=== PATIENT | female | born 1980 | race Caucasian/White ===

== ENCOUNTER 2020-12-08 10:25 | Emergency (ER) | payer MEDICAID ==
[2020-12-08] MEDS: Ondansetron 4 MG Tab.DIS PO ONE (10:45)
[2020-12-08] MEDS: HYDROmorphone 4 MG/ML Syringe SUBCUT ONE (10:47)
--- NOTE | 2020-12-08 11:32 | EDM.PDOC ---
ED HPI GENERAL MEDICAL PROBLEM - General Stated Complaint: HEADACHE Time Seen by Provider: 12/08/20 10:30 - History of Present Illness INITIAL COMMENTS - FREE TEXT/NARRATIVE: Pt comes in with C/O a Migraine headache that started early this morning. she woke up with H/A and nausea. She has not vomited. She usually takes Benadryl but today it isn't helping. She has hx of Migraines. No recent falls or injuries. ED ROS GENERAL - Review of Systems Review Of Systems: Comprehensive ROS is negative, except as noted in HPI. GI/Abdominal: Reports: Nausea Neurological: Reports: Other (Migraine with light sensitive.) ED EXAM, NEURO - Physical Exam Exam: See Below General Appearance: Mild Distress (because of headache.), Other (Obvious light sensitivety.) Course - Orders/Labs/Meds Meds: Medications Discontinued Medications Generic Name Dose Route Start Last Admin Trade Name Freq PRN Reason Stop Dose Admin Hydromorphone HCl 1 mg 12/08/20 10:46 Hydromorphone 4 Mg/Ml Syringe SUBCUT 12/08/20 10:47 ONETIME ONE Ondansetron HCl 4 mg 12/08/20 10:47 Ondansetron 4 Mg Tab.Dis PO 12/08/20 10:48 ONETIME ONE - Re-Assessments/Exams Free Text/Narrative Re-Assessment/Exam: 12/08/20 11:30 Zofran and Dilaudid given. Pt monitored for 30 minutes or so.She is feeling much better now, rating her pain at 5-6/10. She came in at 9-10/10. She will be discharged home with her . [place] tabs will be prescribed to use prn - #3 tabs. She is to rest and use Benadryl also. Follow up is prn. 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 Follow up in the clinic as needed.
== END 2020-12-08 11:30 | disposition home or self-care (01) ==
LOC: LB.ED 10:25
DX: G43.011 Migraine without aura, intractable, with status migrainosus (principal)
CPT/HCPCS: 96372; 99283; A9270-GY; J1170

== ENCOUNTER 2021-02-01 16:30 | Emergency (ER) | payer MEDICAID, OTHER ==
[2021-02-01] MEDS ORDERED: Sodium Chloride 0.9% 10 ML Syringe FLUSH PRN (16:54)
[2021-02-01] MEDS: Sodium Chloride 0.9% 1,000 ML IV SCH (17:21)
[2021-02-01] MEDS: diphenhydrAMINE 50 MG/ML SDV IVPUSH ONE (17:26)
[2021-02-01] MEDS: Ketorolac 30 MG/ML SDV IVPUSH ONE (17:30)
[2021-02-01] MEDS: diphenhydrAMINE 50 MG/ML SDV ONE (17:33)
[2021-02-01] MEDS: Ondansetron 4 MG/2 ML SDV ONE (17:33)
[2021-02-01] MEDS: Ketorolac 30 MG/ML SDV ONE (17:34)
[2021-02-01] MEDS: Ondansetron 4 MG/2 ML SDV IVPUSH PRN (17:34)
[2021-02-01] MEDS: HYDROmorphone 2 MG/ML SDV IVPUSH ONE (18:10)
[2021-02-01] MEDS: HYDROmorphone 2 MG/ML SDV ONE (18:18)
--- NOTE | 2021-02-01 18:33 | EDM.PDOC ---
ED HPI GENERAL MEDICAL PROBLEM - General Chief Complaint: Neurological Problem Stated Complaint: MIGRAINE Time Seen by Provider: 02/01/21 16:30 Source of Information: Reports: Patient, RN Notes Reviewed History Limitations: Reports: No Limitations - History of Present Illness INITIAL COMMENTS - FREE TEXT/NARRATIVE: This patient presents to the emergency department for evaluation of a headache. She states she has a history of migraines and is usually able to manage these at home. She found she was out of her usual medications yesterday when the headache started and it is gotten out of hand. She states is quite bad today and even with her usual medications which consist of Benadryl and ibuprofen her headache is much worse. She is rating her pain at 10 out of 10 but does describe it as a typical migraine for her. Her pain is primarily in the back of her neck and the occipital area of her head. She is photophobic and nauseated. She denies any vomiting. She denies other symptoms or concerns. Anterior Neck Pain Score (Numeric/FACES): 6 - Related Data Allergies Allergy/AdvReac Type Severity Reaction Status Date / Time codeine Allergy Rash Verified 02/01/21 16:35 Home Meds: Home Meds LORazepam [Lorazepam] 1 mg PO DAILY 02/01/21 [History] Lacosamide [Vimpat] 200 mg PO DAILY 02/01/21 [History] Past Medical History - Past Health History Medical/Surgical History: Denies Medical/Surgical History Neurological History: Reports: Migraines Other Neuro History: epilepsy Social & Family History - Family History Family Medical History: No Pertinent Family History - Caffeine Use Caffeine Use: Reports: Coffee, Soda - Recreational Drug Use Recreational Drug Use: Yes Recreational Drug Type: Reports: Marijuana/Hashish Other Recreational Drug Type: medical marijuana ED ROS GENERAL - Review of Systems Review Of Systems: Comprehensive ROS is negative, except as noted in HPI. ED EXAM, NEURO - Physical Exam Exam: See Below Exam Limited By: No Limitations General Appearance: Alert, No Apparent Distress Eye Exam: Bilateral Eye: PERRL Ears: Normal External Exam Nose: Normal Inspection Head Exam: Atraumatic, Normocephalic Neck: Normal Inspection, Full Range of Motion Respiratory/Chest: No Respiratory Distress, Lungs Clear, Normal Breath Sounds, No Accessory Muscle Use Psychiatric: Normal Affect Skin Exam: Warm, Dry, Intact, Normal Color Course - Vital Signs Last Recorded V/S: Last Vital Signs Temp 36.3 C 02/01/21 16:43 Pulse 95 02/01/21 16:43 Resp 8 L 02/01/21 16:43 BP 120/83 02/01/21 16:43 Pulse Ox 98 02/01/21 16:43 - Orders/Labs/Meds Orders: Active Orders 24 hr Category Date Time Status Ondansetron [Zofran] Med 02/01/21 16:54 Active 4 mg IVPUSH Q4H PRN Sodium Chloride 0.9% [Normal Saline] 1,000 ml Med 02/01/21 17:00 Active IV ASDIRECTED Sodium Chloride 0.9% [Saline Flush] Med 02/01/21 16:54 Active 10 ml FLUSH ASDIRECTED PRN Saline Lock Insert [OM.PC] Routine Oth 02/01/21 16:54 Ordered Medication Orders Sodium Chloride (Normal Saline) 1,000 mls @ 999 mls/hr IV ASDIRECTED LIBORIO Last Admin: 02/01/21 17:21 Dose: 999 mls/hr Documented by: AMERICO Ondansetron HCl (Ondansetron 4 Mg/2 Ml Sdv) 4 mg IVPUSH Q4H PRN PRN Reason: Nausea/Vomiting Last Admin: 02/01/21 17:34 Dose: 4 mg Documented by: AMERICO Sodium Chloride (Sodium Chloride 0.9% 10 Ml Syringe) 10 ml FLUSH ASDIRECTED PRN PRN Reason: Keep Vein Open Meds: Medications Generic Name Dose Route Start Last Admin Trade Name Freq PRN Reason Stop Dose Admin Sodium Chloride 1,000 mls @ 999 mls/hr 02/01/21 17:00 02/01/21 17:21 Normal Saline IV 999 mls/hr ASDIRECTED LIBORIO Administration Ondansetron HCl 4 mg 02/01/21 16:54 02/01/21 17:34 Ondansetron 4 Mg/2 Ml Sdv IVPUSH 4 mg Q4H PRN Administration Nausea/Vomiting Sodium Chloride 10 ml 02/01/21 16:54 Sodium Chloride 0.9% 10 Ml Syringe FLUSH ASDIRECTED PRN Keep Vein Open Discontinued Medications Generic Name Dose Route Start Last Admin Trade Name Freq PRN Reason Stop Dose Admin Diphenhydramine HCl 50 mg 02/01/21 16:54 02/01/21 17:26 Diphenhydramine 50 Mg/Ml Sdv IVPUSH 02/01/21 16:55 50 mg ONETIME ONE Administration Diphenhydramine HCl Confirm 02/01/21 17:33 02/01/21 17:33 Diphenhydramine 50 Mg/Ml Sdv Administered 02/01/21 17:34 Not Given Dose 50 mg .ROUTE .STK-MED ONE Hydromorphone HCl Confirm 02/01/21 18:12 02/01/21 18:18 Hydromorphone 2 Mg/Ml Sdv Administered 02/01/21 18:13 Not Given Dose 2 mg .ROUTE .STK-MED ONE Hydromorphone HCl 1 mg 02/01/21 18:00 02/01/21 18:10 Hydromorphone 2 Mg/Ml Sdv IVPUSH 02/01/21 18:01 1 mg ONETIME ONE Administration Ketorolac Tromethamine 30 mg 02/01/21 16:54 02/01/21 17:30 Ketorolac 30 Mg/Ml Sdv IVPUSH 02/01/21 16:55 30 mg ONETIME ONE Administration Ketorolac Tromethamine Confirm 02/01/21 17:34 02/01/21 17:34 Ketorolac 30 Mg/Ml Sdv Administered 02/01/21 17:35 Not Given Dose 30 mg .ROUTE .STK-MED ONE Ondansetron HCl Confirm 02/01/21 17:34 02/01/21 17:33 Ondansetron 4 Mg/2 Ml Sdv Administered 02/01/21 17:35 Not Given Dose 4 mg .ROUTE .STK-MED ONE - Re-Assessments/Exams Free Text/Narrative Re-Assessment/Exam: 02/01/21 18:47 This patient presents to the emergency department for evaluation of a headache. She states this is her typical migraine and she denies any new symptoms. Her attempted usual treatments at home did not work. Her examination was normal with the exception of photophobia. She has a nonfocal neurologic exam and no signs concerning to them infectious etiologies. Clinically the life-threatening diagnoses of subarachnoid hemorrhage and meningitis or encephalitis were ex cluded. I also have no concerns for metabolic disorders which may produce a headache. After in interventions noted above she did report excellent improvement and was able to be discharged home. She was instructed to follow-up with her primary care provider as needed. Departure - Departure Time of Disposition: 18:40 Disposition: Home, Self-Care 01 Condition: Good Clinical Impression: Migraine headache - Discharge Information *PRESCRIPTION DRUG MONITORING PROGRAM REVIEWED*: Not Applicable *COPY OF PRESCRIPTION DRUG MONITORING REPORT IN PATIENT BETTY: Not Applicable Referrals: PCP,None [Primary Care Provider] - Forms: ED Department Discharge Sepsis Event Note (ED) - Evaluation Sepsis Screening Result: No Definite Risk - Focused Exam Vital Signs: Vital Signs Temp Pulse Resp BP Pulse Ox 02/01/21 16:43 36.3 C 95 8 L 120/83 98 - My Orders Last 24 Hours: My Active Orders 02/01/21 16:54 Ondansetron [Zofran] 4 mg IVPUSH Q4H PRN Sodium Chloride 0.9% [Saline Flush] 10 ml FLUSH ASDIRECTED PRN Saline Lock Insert [OM.PC] Routine 02/01/21 17:00 Sodium Chloride 0.9% [Normal Saline] 1,000 ml IV ASDIRECTED - Assessment/Plan Last 24 Hours: My Active Orders 02/01/21 16:54 Ondansetron [Zofran] 4 mg IVPUSH Q4H PRN Sodium Chloride 0.9% [Saline Flush] 10 ml FLUSH ASDIRECTED PRN Saline Lock Insert [OM.PC] Routine 02/01/21 17:00 Sodium Chloride 0.9% [Normal Saline] 1,000 ml IV ASDIRECTED
== END 2021-02-01 18:44 | disposition home or self-care (01) ==
LOC: LB.ED 16:30
DX: G43.909 Migraine, unspecified, not intractable, without status migrainosus (principal); Z88.5 Allergy status to narcotic agent
CPT/HCPCS: 96374; 96375; 99283; J1170; J1200; J1885; J2405; J7030

== ENCOUNTER 2021-02-16 09:32 | Emergency (ER) | payer MEDICAID ==
[2021-02-16] MEDS ORDERED: Ondansetron 4 MG Tab.DIS PO ONE (10:19)
[2021-02-16] MEDS ORDERED: Ketorolac 30 MG/ML SDV IM ONE (10:20)
--- NOTE | 2021-02-16 10:21 | EDM.PDOC ---
ED HPI GENERAL MEDICAL PROBLEM - General Chief Complaint: Neuro Symptoms/Deficits Stated Complaint: SEIZURE A WHILE AGO Time Seen by Provider: 02/16/21 09:35 Source of Information: Reports: Patient History Limitations: Reports: No Limitations - History of Present Illness INITIAL COMMENTS - FREE TEXT/NARRATIVE: 40-year-old female came into the ED today for a seizure that was a departure from her norm. Patient's normal seizures last approximately 5 to 10 minutes and the seizure she had today lasted 20 minutes. Patient was repeating words, hyperventilating, and it, became nauseous/vomiting, and awoke next to the toilet not knowing how she got there. Patient's previous seizures were described as more of an absence seizure type. Apparently on her way to the restroom patient tripped over a week scale falling striking her left knee left hip. Patient has a history of epilepsy she takes Vimpat scheduled and Ativan as necessary. Patient has been taking her seizure medication as prescribed, no episodes of nausea and vomiting prior to today, no known illness. Positive for: Headache exactly like her migraines with photosensitivity, left hip soreness, left lateral knee pain. Patient denies chest pain, shortness of breath, blurred vision currently, diarrhea/constipation, hematochezia, changes in urine color smell and frequency, no red swollen painful joints, easy bruising, or previous trauma. Left Knee Pain Score (Numeric/FACES): 5 - Related Data Allergies Allergy/AdvReac Type Severity Reaction Status Date / Time codeine Allergy Rash Verified 02/16/21 09:48 Home Meds: Home Meds LORazepam [Lorazepam] 1 mg PO DAILY 02/01/21 [History] Lacosamide [Vimpat] 200 mg PO DAILY 02/01/21 [History] Past Medical History - Past Health History Medical/Surgical History: Denies Medical/Surgical History Neurological History: Reports: Migraines, Seizure Other Neuro History: epilepsy Social & Family History - Family History Family Medical History: No Pertinent Family History - Tobacco Use Tobacco Use Status *Q: Never Tobacco User - Caffeine Use Caffeine Use: Reports: Coffee, Soda - Recreational Drug Use Recreational Drug Use: No ED ROS GENERAL - Review of Systems Review Of Systems: Comprehensive ROS is negative, except as noted in HPI. ED EXAM, NEURO - Physical Exam Exam: See Below Text/Narrative:: ABC intact. No apparent distress. No obvious trauma. Speaking in full sentences. Alert and oriented x3, GCS 456. Exam Limited By: No Limitations General Appearance: Alert, WD/WN, No Apparent Distress Eye Exam: Bilateral Eye: Conjunctival Injection (Negative for), EOMI, Nystagmus (Negative for), PERRL Ears: Normal External Exam, Hearing Grossly Normal Nose: Normal Inspection, Normal Mucosa, No Blood Throat/Mouth: Normal Inspection, Normal Lips, Normal Teeth (Poor dentition/hygiene), Normal Gums, Normal Oropharynx, Normal Voice, No Airway Comp romise Head Exam: Atraumatic (Mild soreness right occipital similar to her post migraine), Normocephalic Respiratory/Chest: No Respiratory Distress, Lungs Clear, Normal Breath Sounds, No Accessory Muscle Use, Chest Non-Tender Cardiovascular: Normal Peripheral Pulses, Regular Rate, Rhythm, No Edema, No Gallop, No JVD, No Murmur, No Rub GI/Abdominal: Soft, Non-Tender, No Distention Neurological: Alert, Normal Mood/Affect, CN II-XII Intact, No Motor/Sensory Deficits, Oriented x 3 Back Exam: Normal Inspection, Full Range of Motion, NT Extremities: Normal Inspection (Pain on left lateral knee with varus stress, no laxity noted in the knee), Normal Range of Motion, Non-Tender, No Pedal Edema, Normal Capillary Refill Psychiatric: Normal Affect, Normal Mood Skin Exam: Warm, Intact, Normal Color, No Rash Course - Vital Signs Last Recorded V/S: Last Vital Signs Temp 99.0 F 02/16/21 09:46 Pulse 87 02/16/21 09:46 Resp 16 02/16/21 09:46 BP 127/91 H 02/16/21 09:46 Pulse Ox 98 02/16/21 09:46 - Orders/Labs/Meds Orders: Active Orders 24 hr Category Date Time Status BASIC METABOLIC PANEL,BMP [CHEM] Stat Lab 02/16/21 10:10 Received CBC WITH AUTO DIFF [HEME] Stat Lab 02/16/21 10:10 Received Departure - Departure Time of Disposition: 13:00 Disposition: Home, Self-Care 01 Condition: Good Clinical Impression: Seizure disorder, Hyperventilation, Anxiety - Discharge Information *PRESCRIPTION DRUG MONITORING PROGRAM REVIEWED*: No *COPY OF PRESCRIPTION DRUG MONITORING REPORT IN PATIENT BETTY: No Referrals: PCP,None [Primary Care Provider] - Sepsis Event Note (ED) - Evaluation Sepsis Screening Result: No Definite Risk - Focused Exam Vital Signs: Vital Signs Temp Pulse Resp BP Pulse Ox 02/16/21 09:46 99.0 F 87 16 127/91 H 98 - My Orders Last 24 Hours: My Active Orders 02/16/21 10:10 BASIC METABOLIC PANEL,BMP [CHEM] Stat CBC WITH AUTO DIFF [HEME] Stat - Assessment/Plan Last 24 Hours: My Active Orders 02/16/21 10:10 BASIC METABOLIC PANEL,BMP [CHEM] Stat CBC WITH AUTO DIFF [HEME] Stat Assessment:: 40-year-old female with a history of signet significant for seizure disorder who presents for evaluation of a spell consistent with a seizure/panic attack. A broad differential diagnosis was considered for seizures today including medicine noncompliance, low or high levels of antiepileptic medications, intracranial bleed, stroke, tumor, hypoglycemia, cerebral edema, metabolic derangement, cardiac arrhythmia etc. Patient has no signs concerning etiologies of seizure or seizure mimics at this time. Antiepileptic levels would not be testable in a timely manner. Patient's course and discharge were discussed with her neurology nurse practitioner Luzmaria Jeffers NP. The head to toe trauma exam is negative except for some mild left knee discomfort on varus stress to which patient will follow up with primary care provider and a soreness in her left buttocks. There are no signs or signs of serious sequelae from trauma at this time such as spinal fractures dislocations supportive out patient management is indicated and concurred with by Luzmaria Jeffers NP. Patient to continue taking Vimpat and Ativan as necessary for seizure activity. Follow-up with Luzmaria Jeffers in approximately 1 week. Plan: ABC, history, exam, labs, consult with neurology, consult with patient's neurology nurse practitioner, patient education/shared decision making, all questions were answered to the patient's satisfaction patient understands treatment plan and agrees. Patient was discharged in stable condition to follow-up with primary care provider for her left knee and with neurology nurse practitioner next week. Patient to return to ED if she has any seizure activity that is outside of her normal, develops a fever, or other troublesome symptoms.
[2021-02-16] MEDS ORDERED: Ondansetron 4 MG Tab.DIS ONE (10:35)
[2021-02-16] MEDS ORDERED: Ketorolac 30 MG/ML SDV ONE (10:35)
[2021-02-16] MEDS ORDERED: LORazepam 1 MG Tab PO ONE (11:11)
--- NOTE | 2021-02-16 15:03 | CT ---
Date of Service: 02/16/21 Clinical Data: sz UNENHANCED BRAIN CT: Multislice axial acquisition was performed. No priors. No masses or mass effect. No intracranial hemorrhage. No evidence of acute or subacute infarct. No osseous abnormalities. IMPRESSION: No acute intracranial abnormalities. [id number] [facility]
== END 2021-02-16 12:52 | disposition home or self-care (01) ==
LOC: LB.ED 09:32
DX: G40.909 Epilepsy, unspecified, not intractable, without status epilepticus (principal); F41.9 Anxiety disorder, unspecified; R06.4 Hyperventilation; Z88.5 Allergy status to narcotic agent
CPT/HCPCS: 36415; 70450; 80048; 85025; 96372; 99284-25; A9270-GY; J1885

== ENCOUNTER 2021-07-15 09:46 | Emergency (ER) | payer MEDICAID ==
[2021-07-15] MEDS: Ketorolac 30 MG/ML SDV IM ONE (11:00)
[2021-07-15] MEDS: Ketorolac 30 MG/ML SDV ONE (11:00)
== END 2021-07-15 12:15 | disposition home or self-care (01) ==
LOC: LB.ED 09:46
DX: H53.8 Other visual disturbances (principal); R51.9 Headache, unspecified; T50.995A Adverse effect of other drugs, medicaments and biological substances, initial encounter; Z79.899 Other long term (current) drug therapy; Z88.5 Allergy status to narcotic agent; Z88.2 Allergy status to sulfonamides
CPT/HCPCS: 36415; 70450; 80048; 80307; 81001; 84443; 85025; 93005; 93010; 96372; 99283; 99285-25; J1885

== ENCOUNTER 2022-02-05 14:17 | Emergency (ER) | payer MEDICAID ==
[2022-02-05] MEDS ORDERED: Diphtheria/Tetanus Toxoids,Adult (Td) 0.5 ML SDV IM ONE (17:32)
[2022-02-05] MEDS ORDERED: Acetaminophen/HYDROcodone 325-5 MG Tab PO ONE (17:37)
[2022-02-05] MEDS ORDERED: Amoxicillin/Clavulanate K 875-125 MG Tab ONE (18:00)
== END 2022-02-05 18:18 | disposition home or self-care (01) ==
LOC: LB.ED 14:17
DX: S61.255A Open bite of left ring finger without damage to nail, initial encounter (principal); S61.253A Open bite of left middle finger without damage to nail, initial encounter; Z23 Encounter for immunization; Z88.5 Allergy status to narcotic agent; Z88.2 Allergy status to sulfonamides; Z79.899 Other long term (current) drug therapy; W54.0XXA Bitten by dog, initial encounter
CPT/HCPCS: 90471; 90714; 99283; A9270